=== PATIENT | male | born 1975 | race Caucasian/White ===

== ENCOUNTER 2018-01-22 14:00 | Outpatient (CLI) | payer OTHER ==
[~2018-01-22] VITALS: Ht 185.4 cm; Wt 93.0 kg
[2018-01-26] MEDS ORDERED: ACHD5005 PO (09:33)
[2018-01-26] MEDS ORDERED: OXYC-197 PO (11:31)
== END 2018-01-22 15:00 ==
LOC: PREOP 14:00
PROVIDERS: ATTEND Surgery
DX: Z01.818 Encounter for other preprocedural examination (principal); K40.90 Unilateral inguinal hernia, without obstruction or gangrene, not specified as recurrent

== ENCOUNTER 2018-01-26 06:13 | Day surgery (SDC) | payer OTHER ==
[~2018-01-26] VITALS: Ht 185.4 cm; Wt 93.0 kg
--- OUTSIDE RECORDS SUMMARY | 2018-01-26 06:17 | XMS REPORT ---
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 Medications Active Name Start Date Estimated Completion Date SIG Comments Bactrim DS 800-160 mg oral tablet take 1 tablet by oral route 2 times per day clindamycin HCl 300 mg oral capsule 02/28/2017 03/07/2017 take 1 capsule by oral route 3 times a day for 7 days Name Start Date Expiration Date SIG Comments phentermine Oral Tablet 37.5 mg 07/11/2012 08/10/2012 take 1 tablet (37.5 mg ) by oral route once daily before breakfast for 30 days Levaquin Oral tablet 750 mg 06/10/2013 06/17/2013 take 1 tablet (750 mg) by oral route once daily for 7 days prednisone oral tablet 20 mg 12/15/2013 12/20/2013 take 1 tablet (20 mg) by oral route once daily for 5 days prednisone oral tablet 20 mg 01/21/2014 01/27/2014 Take 40mg once daily for 2 days, then 20mg daily for 4 days Discontinued Name Start Date Discontinued Date SIG Comments hydrocortisone topical cream 2.5 % 12/15/2013 01/21/2014 apply to the affected area(s) by topical route once daily Problem List Description Status Onset Seasonal Allergies Active Vital Signs Date Time BP-Sys(mm[Hg] BP-Luz(mm[Hg]) HR(bpm) RR(rpm) Temp WT HT HC BMI BSA BMI Percentile O2 Sat(%) 02/28/2017 5:31:00 PM 126 mmHg 82 mmHg 102 bpm 20 rpm 98.9 F 202.25 lbs 73 in 26.68 kg/m2 2.17 m2 99 % 01/21/2014 9:33:00 AM 136 mmHg 68 mmHg 68 bpm 18 rpm 96.5 F 223.25 lbs 73 in 29.454 kg/m 2.2838 m 97 % 12/16/2013 8:26:00 AM 122 mmHg 86 mmHg 69 bpm 18 rpm 97.7 F 212.125 lbs 73 in 27.99 kg/m2 2.23 m2 98 % 06/10/2013 2:47:00 PM 138 mmHg 80 mmHg 125 bpm 18 rpm 102.3 F 223.25 lbs 73 in 29.454 kg/m 2.2838 m 99 % 07/11/2012 8:28:00 AM 128 mmHg 72 mmHg 89 bpm 18 rpm 96.7 F 220.125 lbs 73 in 29.04 kg/m2 2.27 m2 98 % Social History Name Description Comments Alcohol Use - Occasional Tobacco Never smoker History of Procedures Date Ordered Description Order Status 02/28/2017 12:00 AM CUL BACT XCPT URINE BLOOD/STOOL AEROBIC ISOL Reviewed 02/28/2017 12:00 AM Rocephin 1 gram Injection Reviewed 06/10/2013 12:00 AM COMPLETE CBC W/AUTO DIFF WBC Reviewed 06/10/2013 12:00 AM COMPREHEN METABOLIC PANEL Reviewed 06/10/2013 12:00 AM THER/PROPH/DIAG INJ SC/IM Reviewed 06/10/2013 12:00 AM Decadron, Per 1 Mg [facility]# [address]-70 Reviewed 06/10/2013 12:00 AM Depo-Medrol, Per 80 Mg [facility]#2936-0465-90 Reviewed 01/21/2014 12:00 AM X-RAY EXAM OF FOOT Reviewed Results Summary Date and Description Results 06/10/2013 3:25 PM WBC 8.6 RBC 4.98 HGB 15.20 g/dLHCT 43.0 %MCV 86.0 fLMCH 30.50 pgMCHC 35.30 g/dLRDW SD 39 RDW CV 12.50 %MPV 9.10 fLPLT 169 NRBC# 0.00 NRBC% 0.0 %NEUT 73.20 %%LYMP 14.80 %%MONO 10.80 %%EOS 1.0 %%BASO 0.20 %#NEUT 6.28 #LYMP 1.27 #MONO 0.93 #EOS 0.09 #BASO 0.02 MANUAL DIFF NOT IND GLUCOSE 102.0 mg/dLSODIUM 138.0 mmol/LPOTASSIUM 4.20 mmol/LCHLORIDE 103.0 mmol/LCO2 27.0 mmol/LBUN 12.0 mg/dLCREATININE 0.90 mg/dLSGOT/AST 25.0 IU/LSGPT/ALT 31.0 IU /LALK PHOS 92.0 IU/LTOTAL PROTEIN 7.40 g/dLALBUMIN 4.50 g/dLTOTAL BILI 1.60 mg/ dLCALCIUM 9.50 mg/dLAGE 38 GFR NonAA 95 GFR AA 115 eGFR >60 mL/min/1.73 m2eGFR AA* >60 02/28/2017 6:20 PM SPECIMEN SOURCE: CELLULITIS OF AXILLA R SPECIMEN SOURCE: CELLULITIS OF AXILLA R History Of Immunizations Not available. History of Past Illness Name Date of Onset Comments Seasonal Allergies Meningitis, Bacterial General Medical Exam, Adult Jul 11 2012 8:31AM Body Mass Index [BMI]; body mass index between 25-29, adult; body mass index 29.0-29.9, adult Jul 11 2012 8:31AM Upper Respiratory Infections Jun 10 2013 2:50PM Cough Jun 10 2013 2:50PM Contact dermatitis and other eczema; due to plants [except food] Dec 16 2013 8:26AM Left Pain in foot, Jan 21 2014 9:36AM Cellulitis of axilla, right Feb 28 2017 5:33PM Payers Insurance Name Company Name Plan Name Plan Number Policy Number Policy Group Number Start Date Cherry Carey [id number] N/A [facility] Benefit Services [facility] Benef[facility] [id number] Saturday, 2013 Cherry Carey [id number] N/A History of Encounters Visit Date Visit Type Provider 02/28/2017 Office visit Sean Caldera APRN 01/21/2014 Office visit Radha Waterman APRN 12/15/2013 Office visit Sean Caldera APRN 06/10/2013 Office visit Radha Waterman APRN 07/11/2012 Office visit Radha Waterman APRN
--- OUTSIDE RECORDS SUMMARY | 2018-01-26 06:17 | XMS REPORT ---
Author Author Radha Waterman [facility] Address [address] [place], [place] [id number] Care Team Providers Care Partner Name Role Phone Radha Waterman PCP Allergies and Adverse Reactions Name Reaction Notes NO KNOWN DRUG ALLERGIES Poison [place]/Poison Kaylin Plan of Treatment Not available. Medications Name Start Date Expiration Date SIG Comments [...] days, then 20mg daily for 4 days clindamycin HCl 300 mg oral capsule 02/28/2017 03/07/2017 take 1 capsule by oral route 3 times a day for 7 days Discontinued Name Start Date Discontinued Date SIG Comments hydrocortisone topical cream 2.5 % 12/15/2013 01/21/2014 apply to the affected area(s) by topical route once daily Bactrim DS 800-160 mg oral tablet 12/20/2017 take 1 tablet by oral route 2 times per day Problem List Description Status Onset Seasonal Allergies Active Vital Signs Date Time BP-Sys(mm[Hg] BP-Luz(mm[Hg]) HR(bpm) RR(rpm) Temp WT HT HC BMI BSA BMI Percentile O2 Sat(%) 12/20/2017 11:01:00 AM 134 mmHg 82 mmHg 94 bpm 18 rpm 98.6 F 205.125 lbs 73 in 27.0627 kg/m 2.1891 m 99 % 02/28/2017 5:31:00 PM 126 mmHg 82 mmHg 102 bpm 20 rpm 98.9 F 202.25 lbs 73 in 26.68 kg/m2 2.17 m2 99 % 01/21/2014 9:33:00 AM 136 mmHg 68 mmHg 68 bpm 18 rpm 96.5 F 223.25 lbs 73 in 29.45 kg/m2 2.28 m2 97 % 12/16/2013 8:26:00 AM 122 mmHg 86 mmHg 69 bpm 18 rpm 97.7 F 212.125 lbs 73 in 27.9862 kg/m 2.2262 m 98 % 06/10/2013 2:47:00 PM 138 mmHg 80 mmHg 125 bpm 18 rpm 102.3 F 223.25 lbs 73 in 29.45 kg/m2 2.28 m2 99 % 07/11/2012 8:28:00 AM 128 mmHg 72 mmHg 89 bpm 18 rpm 96.7 F 220.125 lbs 73 in 29.0417 kg/m 2.2678 m 98 % Social History Name Description Comments Alcohol Use - Occasional Tobacco Never smoker History of Procedures Date Ordered Description Order Status 02/28/2017 12:00 AM CUL BACT XCPT URINE BLOOD/STOOL AEROBIC ISOL Reviewed 02/28/2017 12:00 AM Rocephin 1 gram Injection Reviewed 12/20/2017 12:00 AM US XTR NON-VASC LMTD Returned 01/03/2018 12:00 AM Consult/Referral Reviewed 06/10/2013 12:00 AM COMPLETE CBC W/AUTO DIFF WBC Reviewed 06/10/2013 12:00 AM COMPREHEN METABOLIC PANEL Reviewed 06/10/2013 12:00 AM THER/PROPH/DIAG INJ SC/IM Reviewed 06/10/2013 12:00 AM Decadron, Per 1 Mg [facility]# [address]-11 Reviewed 06/10/2013 12:00 AM Depo-Medrol, Per 80 Mg [facility]#8682-5000-80 Reviewed 01/21/2014 12:00 AM X-RAY EXAM OF [...] PM SPECIMEN SOURCE: CELLULITIS OF AXILLA R History [...] of axilla, right Feb 28 2017 5:33PM Groin pain, left Dec 20 2017 11:03AM Inguinal hernia Jan 03 2018 8:33AM Payers Insurance Name Company Name Plan Name Plan Number Policy Number Policy Group Number Start Date Cherry Carey [id number] N/A [facility] Benefit Services [facility] [id number] Saturday, 2013 Cherry Carey [id number] N/A History of Encounters Visit Date Visit Type Provider 12/20/2017 Office visit Radha Waterman RESEARCH ASSISTANT MEMBER 02/28/2017 Office visit Sean Caldera RESEARCH ASSISTANT MEMBER 01/21/2014 Office visit Radha Waterman RESEARCH ASSISTANT MEMBER 12/15/2013 Office visit Sean Caldera RESEARCH ASSISTANT MEMBER 06/10/2013 Office visit Radha Waterman APRN 07/11/2012 Office visit Radha Waterman APRN
--- OUTSIDE RECORDS SUMMARY | 2018-01-26 06:17 | XMS REPORT ---
Author Author Radha Waterman [facility] Address [address] [place], [place] [id number] Care Team Providers Care Investigation Division Lieutenant Name Role Phone Radha Waterman PCP Allergies and Adverse Reactions Name Reaction Notes NO KNOWN DRUG ALLERGIES Poison [place]/Poison Kaylin Plan of Treatment Not available. Medications [...] 06/10/2013 12:00 AM Decadron, Per 1 Mg [facility]# [address]-06 Reviewed 06/10/2013 12:00 AM Depo-Medrol, Per 80 Mg [facility]#6776-0034-26 Reviewed 01/21/2014 12:00 AM X-RAY EXAM OF [...] Policy Group Number Start Date Cherry Carey [id number] N/A [facility] Benefit Services [facility] Benefit [facility] [id number] Saturday, 2013 Cherry Carey [id number] N/A History of Encounters Visit Date Visit Type Provider 12/20/2017 Office visit Radha Waterman COLD WORK OPERATOR 02/28/2017 Office visit Sean Caldera COLD WORK OPERATOR 01/21/2014 Office visit Radha Waterman COLD WORK OPERATOR 12/15/2013 Office visit Sean Caldera COLD WORK OPERATOR 06/10/2013 Office visit Radha Waterman APRN 07/11/2012 Office visit Radha Waterman APRN
--- OUTSIDE RECORDS SUMMARY | 2018-01-26 06:17 | XMS REPORT ---
Author Author Radha Waterman [facility] Address [address] [place], [place] [id number] Care Team Providers Care National Sales Representative Name Role Phone Radha Waterman PCP Allergies and Adverse Reactions Name Reaction Notes NO KNOWN DRUG ALLERGIES Poison [place]/Poison Kaylin Plan of Treatment Planned Activity Comments Planned Date Planned Time Plan/Goal US EXTREMITY SONO, NONVASCULAR, LIMITED 12/20/2017 12:00 AM Medications Name Start Date Expiration Date SIG [...] 12:00 AM Decadron, Per 1 Mg [facility]# [address]-11 Reviewed 06/10/2013 12:00 AM Depo-Medrol, Per 80 Mg [facility]#0659-4567-39 Reviewed 01/21/2014 12:00 AM X-RAY EXAM OF [...] Groin pain, left Dec 20 2017 11:03AM Payers Insurance Name Company Name Plan Name Plan Number Policy Number Policy Group Number Start Date Cherry Carey [id number] N/A [facility] Benefit Services [facility] Benefit [facility] [id number] Saturday, 2013 [employer] [id number] N/A History of Encounters Visit Date Visit Type Provider 12/20/2017 Office visit Radha Waterman VACUUM CLEANER MECHANIC 02/28/2017 Office visit Sean Caldera VACUUM CLEANER MECHANIC 01/21/2014 Office visit Radha Waterman VACUUM CLEANER MECHANIC 12/15/2013 Office visit Sean Caldera APRN 06/10/2013 Office visit Radha Waterman VACUUM CLEANER MECHANIC 07/11/2012 Office visit Radha Waterman VACUUM CLEANER MECHANIC
--- OUTSIDE RECORDS SUMMARY | 2018-01-26 06:18 | XMS REPORT ---
Author Author Radha Waterman [facility] Address [address] [place], [place] [id number] Care Team Providers Care Insurance Producer Name Role Phone Radha Waterman PCP Allergies and Adverse Reactions Name Reaction Notes NO KNOWN DRUG ALLERGIES Poison [place]/Poison Kaylin Plan of Treatment Not available. Medications [...] 06/10/2013 12:00 AM Decadron, Per 1 Mg [facility]# [address]-54 Reviewed 06/10/2013 12:00 AM Depo-Medrol, Per 80 Mg [facility]#4568-6092-16 Reviewed 01/21/2014 12:00 AM X-RAY EXAM OF [...] Policy Group Number Start Date Cherry Carey [id number] N/A [facility] Benefit Services [facility] Benefit Services [id number] Saturday, 2013 Cherry Carey [id number] N/A History of Encounters Visit Date Visit Type Provider 12/20/2017 Office visit Radha Waterman DIRECTOR OF INTELLIGENCE 02/28/2017 Office visit Sean Caldera DIRECTOR OF INTELLIGENCE 01/21/2014 Office visit Radha Waterman DIRECTOR OF INTELLIGENCE 12/15/2013 Office visit Sean Caldera DIRECTOR OF INTELLIGENCE 06/10/2013 Office visit Radha Waterman APRN 07/11/2012 Office visit Radha Waterman APRN
[2018-01-26 06:20] VITALS: BP 127/87
[2018-01-26] MEDS ORDERED: ceFAZolin 2 GM IV Premixed 50 ML IV ONE (06:30)
[2018-01-26] MEDS: LACTATED RINGERS 1,000 ML IV PRN ×3 (06:43→10:10)
[2018-01-26 06:45] LABS: BASOPHILS % (AUTO) 1 % (0-10); EOSINOPHILS # (AUTO) 0.2 10^3/uL (0.0-0.3); EOSINOPHILS % (AUTO) 4 % (0-10); HEMATOCRIT 42 % (40-54); HEMOGLOBIN 15.5 G/DL (13.3-17.7); LYMPHOCYTES # (AUTO) 1.9 X 10^3 (1.0-4.0); LYMPHOCYTES % (AUTO) 35 % (12-44); MEAN CORPUSCULAR HEMOGLOBIN 31 PG (25-34); MEAN CORPUSCULAR HGB CONC 37 G/DL (32-36); MEAN CORPUSCULAR VOLUME 85 FL (80-99); MEAN PLATELET VOLUME 8.8 FL (7.4-10.4); MONOCYTES # (AUTO) 0.7 X 10^3 (0.0-1.0); MONOCYTES % (AUTO) 12 % (0-12); NEUTROPHILS # (AUTO) 2.7 X 10^3 (1.8-7.8); NEUTROPHILS % (AUTO) 48 % (42-75); PLATELET COUNT 195 10^3/uL (130-400); RED BLOOD COUNT 4.97 10^6/uL (4.35-5.85); RED CELL DISTRIBUTION WIDTH 12.6 % (10.0-14.5); WHITE BLOOD COUNT 5.6 10^3/uL (4.3-11.0)
[2018-01-26] MEDS ORDERED: BUP/EPI 0.5% 1:200,000 (SENSORCAINE) 30 ML VIAL ONE (06:48)
[2018-01-26] MEDS ORDERED: ONDANSETRON 4 MG/2 ML (SDV) Z0FRAN ONE (06:53)
[2018-01-26] MEDS ORDERED: MIDAZOLAM 2 MG/2 ML (VERSED) VIAL ONE (06:53)
[2018-01-26] MEDS ORDERED: proPOfol 200 MG/20 ML (DIPRIVAN) VIAL IV ONE (06:53)
[2018-01-26] MEDS ORDERED: ROCURONIUM 10 MG/ML 5 ML SYRINGE IV ONE ×2 (06:53→08:06)
[2018-01-26] MEDS ORDERED: LIDOCAINE PF 2% 5 ML (XYLOCAINE) VIAL ONE (06:53)
[2018-01-26] MEDS ORDERED: SEVOFLURANE (ULTANE) 15 ML INHAL SOLN ONE ×9 (06:55→09:39)
[2018-01-26] MEDS ORDERED: fentaNYL INJECTION 100 MCG/2 ML AMP ONE ×2 (06:55→08:24)
[2018-01-26] MEDS ORDERED: DEXAMETHASONE 10 MG/ML (DECADRON) 1 ML VIAL ONE (06:55)
--- NOTE | 2018-01-26 07:24 | Progress Note-Pre Operative ---
Pre-Operative Progress Note H&P Reviewed The H&P was reviewed, patient examined and no changes noted. Date Seen by Provider: January 11, 2018 Time Seen by Provider: 11:50 Date H&P Reviewed: Jan 26, 2018 Time H&P Reviewed: 07:24 Pre-Operative Diagnosis: Left inguinal hernia ROBERT BRIDGES MD Jan 26, 2018 7:24 am
[2018-01-26] MEDS ORDERED: morphine INJ 10 MG/ML 1ML (SYR OR VIAL) ONE (09:20)
--- NOTE | 2018-01-26 09:32 | Operative Report ---
Operative Report Date of Procedure/Surgery Jan 26, 2018 Surgeon (s) ROBERT BRIDGES MD [employer] Crew Supervisor (s): N/A Post-Operative Diagnosis Same Procedure Performed Robotic assisted repair with mesh Description of Procedure Anesthesia Type: General Estimated blood loss (mL): Minimal Specimen(s) collected/removed Hernia contents Description of the Procedure Indication for the procedure: This gentleman presented with a symptomatic left inguinal hernia, confirmed by an ultrasound. He was offered repair using minimally invasive technique with robotic assistance and mesh reinforcement. Informed consent was obtained after reviewing the operative details and complications of postoperative hematoma, infection of the mesh and the potential for recurrence. Description of the procedure: He was placed supine on the operative table and general anesthesia induced using an endotracheal tube. 2 grams of Ancef were administered intravenously as prophylaxis against wound infection. Sequential compression devices were placed around his legs, to minimize the risk of venous thrombosis. Abdomen and scrotum were prepared and draped in the usual sterile manner. Pneumoperitoneum was established using introduced over the supraumbilical region. Intra-abdominal pressure was maintained at 15 mmHg, using carbon dioxide insufflation. A 12 mm trocar was placed and anatomy visualized using the high definition, 3-dimensional laparoscope, associated with da Swathi system. An indirect inguinal hernia was confirmed. I placed an 8 mm trocar over each side of the abdomen and the patient was turned into steep Trendelenburg position, to displace loops of bowel out of the pelvis. The robotic system was docked in place. Peritoneum was incised laterally, entering the pre--peritoneal space. A large indirect hernia containing mainly extraperitoneal fat and a lipoma the cord was encountered. The sac was introduced and the contents were excised separately, we removed at the end of the operation using an Endo Catch bag. Heath's ligament was delineated and the cord structures were carefully out. Transversalis fascia was plicated using a 20V LOC suture without restricting the cord structures. A polypropylene mesh 3 made to fit into the preperitoneal space, measuring 15 cm in length by 10 cm in width was chosen. It was split to accommodate the cord and the medial edges were secured to Heath's ligament using 2-0 Vicryl sutures. Another suture was placed along the anterior abdominal musculature without entrapping any of the nerves. The mesh appeared to use lie satisfactorily without any tension or laxity. Peritoneum was then reconstituted using 20V LOC suture with robotic assistance. The fascia over the supraumbilical incision was closed using #1 Vicryl. Skin incisions were closed using 4-0 Vicryl, in a subcuticular fashion. 0.5 percent Marcaine with epinephrine was infiltrated along the incisions, both preemptively and at the conclusion of the operation. He tolerated the procedure well, was extubated in the operating room and taken to the recovery room in a stable condition. Findings of the Procedure See op report Allergies and Home Medications Allergies Coded Allergies: No Known Drug Allergies (Unverified , 01/22/18) Home Medications No Active Prescriptions or Reported Meds Patient Home Medication List Home Medication List Reviewed: Yes ROBERT BRIDGES MD Jan 26, 2018 9:32 am
[2018-01-26] MEDS ORDERED: ACHD5005 PO (09:33)
--- NOTE | 2018-01-26 09:33 | Discharge Inst-Simple/Standard ---
Discharge Inst-Standard Discharge Medications New, Converted or Re-Newed RX: RX on Chart Patient Instructions/Follow Up Plan of Care/Instructions/FU: Band-Aids off in 48 hours. Incentive spirometry. Follow-up in a month. Activity as Tolerated: No Goal: No lifting over 20 pounds Discharge Diet: No Restrictions ROBERT BRIDGES MD Jan 26, 2018 9:33 am
[2018-01-26] MEDS: morphine INJ 10 MG/ML 1ML (SYR OR VIAL) IVP PRN ×2 (09:44→09:54)
[2018-01-26] MEDS ORDERED: HYDROmorphone 1 MG/ML (DILAUDID) 1 ML SYRINGE IV PRN (09:45)
[2018-01-26] MEDS ORDERED: MEPERIDINE (DEMEROL) INJ 50 MG/ML IVP PRN (09:45)
[2018-01-26] MEDS ORDERED: ONDANSETRON 4 MG/2 ML (SDV) Z0FRAN IVP PRN (09:45)
[2018-01-26] MEDS ORDERED: KETOROLAC 30 MG/ML VIAL IVP ONE (09:49)
--- NOTE | 2018-01-26 10:16 | Anesthesia-General Post-Op ---
General Patient Condition Mental Status/LOC: Same as Preop Cardiovascular: Satisfactory Nausea/Vomiting: Absent Respiratory: Satisfactory Pain: Controlled Complications: Absent Post Op Complications Complications None Follow Up Care/Instructions Patient Instructions None needed. Anesthesia/Patient Condition Patient Condition Patient is doing well, no complaints, stable vital signs, no apparent adverse anesthesia problems. No complications reported per nursing. D/C home per [facility] Criteria: Yes KELLY SAHU CRNA Jan 26, 2018 10:16
[2018-01-26 10:40] VITALS: BP 128/86
[2018-01-26] MEDS ORDERED: GLYCOPYRROLATE 0.2 MG/ML (ROBINUL) 2 ML VIAL ONE (11:01)
[2018-01-26] MEDS ORDERED: NEOSTIGMINE 1 MG/ML 5 ML SYRINGE ONE (11:01)
[2018-01-26 11:10] VITALS: BP 126/72
[2018-01-26] MEDS ORDERED: OXYC-197 PO (11:31)
[2018-01-26 11:40] VITALS: BP 145/63
[2018-01-26 12:15] VITALS: BP 145/63
== END 2018-01-26 12:15 | disposition home or self-care (01) ==
LOC: SDC 06:13
PROVIDERS: ATTEND Surgery
DX: K40.90 Unilateral inguinal hernia, without obstruction or gangrene, not specified as recurrent (principal); D17.6 Benign lipomatous neoplasm of spermatic cord
CPT/HCPCS: 36415; 85025; 87081; 88302; 94664